=== PATIENT | male | born 1990 | race Hispanic/Latino ===

== ENCOUNTER 2018-01-01 02:46 | Emergency (ER) | payer MEDICAID ==
[2018-01-01 02:46] VITALS: BMI 22.0
[2018-01-01 03:37] VITALS: RESP 20; O2SAT 100
--- NOTE | 2018-01-01 03:53 | C.PDOC ---
History Of Present Illness 27 year old male presents to the ED for evaluation, stating he has been unable to sleep for the past month. Patient states he usually gets 2-4 hours of interrupted sleep per night. He has not followed up with his psychiatrist and stopped taking his medication, Zoloft and Xanax, because he ran out and cannot get a refill because of insurance-related issues. Patient saw an other doctor and was prescribed Atarax, from which he found no relief . Yesterday, he was prescribed Xanax, took 4 tabs of 0.5 mg each and has still been unable to find relief. Patient denies suicidal/homicidal ideation, and has no other complaints at this time. Pt has appt with psychiatrist next , 2/5 Time Seen by Provider: 01/01/18 03:17 Chief Complaint (Nursing): Psychiatric Evaluation History Per: Patient History/Exam Limitations: no limitations Onset/Duration Of Symptoms: Days Current Symptoms Are (Timing): Still Present Suicide/Self Injury Attempted (Context): None Associated Symptoms: denies: Suicidal Thoughts, Suicidal Plan Involuntary Hold By: None Recent travel outside of the [place]: No Additional History Per: Patient Past Medical History Reviewed: Historical Data, Nursing Documentation, Vital Signs Vital Signs: Last Vital Signs Temp 98.8 F 01/01/18 04:17 Pulse 110 H 01/01/18 04:17 Resp 20 01/01/18 04:17 BP 127/88 01/01/18 04:17 Pulse Ox 100 01/01/18 04:36 - Medical History PMH: Anxiety, Depression Surgical History: Tonsillectomy Family History: States: Unknown Family Hx - Social History Hx Alcohol Use: No Hx Substance Use: No Review Of Systems Psych: Positive for: Other (insomnia ). Negative for: Suicidal ideation Physical Exam - Physical Exam Appears: Non-toxic, No Acute Distress Skin: Normal Color, Warm, Dry Head: Atraumatic, Normacephalic Eye(s): bilateral: Normal Inspection Oral Mucosa: Moist Chest: Symmetrical, No Deformity, No Tenderness Cardiovascular: Rhythm Regular, No Murmur Respiratory: Normal Breath Sounds Neurological/Psych: Oriented x3, Normal Speech, Normal Cognition Gait: Steady ED Course And Treatment O2 Sat by Pulse Oximetry: 100 (on RA) Pulse Ox Interpretation: Normal Medical Decision Making Medical Decision Making: pt iwth hx aniety and depression, not on medications due to insurance reasons. here with several month hx of insomnia. pt given rx of atarax that doesn't work. on , he received xanax 0.5 mg, sts he took 4 tabs over several and still not able to sleep. wants rx for ambien. no hi, si, ah. pt has appt with his psychiatric on 01/06/18. d/c home with benadryl. pt does not need crisis evaluation at this time. Disposition Counseled Patient/Family Regarding: Diagnosis, Need For Followup, Rx Given - Disposition Disposition: HOME/ ROUTINE Disposition Time: 04:03 Condition: STABLE Additional Instructions: Please take Xanax only as prescribed for anxiety. Take benadryl ( diphenhydramine) at bedtime only to help ypu sleep. Follow up with your psychiatrist on Jan 04 as scheduled. Prescriptions: DiphenhydrAMINE [Benadryl] 50 mg PO HS #6 cap Instructions: Insomnia (ED) Forms: [facility] (Jamaican), General Discharge Instructions - Clinical Impression Clinical Impression: Insomnia - PA / CONE SEWER / Resident Statement MD/DO has reviewed & agrees with the documentation as recorded. - Scribe Statement The provider has reviewed the documentation as recorded by the Scribe (Lolis Marie) All medical record entries made by the Scribe were at my direction and personally dictated by me. I have reviewed the chart and agree that the record accurately reflects my personal performance of the history, physical exam, medical decision making, and the department course for this patient. I have also personally directed, reviewed, and agree with the discharge instructions and disposition.
[2018-01-01 04:18] VITALS: BP 127/88; PULSE 110; TEMP 98.8
== END 2018-01-01 04:18 | disposition home or self-care (01) ==
LOC: C.ER 02:46
DX: G47.00 Insomnia, unspecified (principal)

== ENCOUNTER 2018-04-22 02:51 | Emergency (ER) | payer MEDICAID ==
[2018-04-22 02:51] VITALS: BMI 22.0
[2018-04-22 03:40] LABS: BASO # 0.1 K/uL (0.0-0.2); BASO % 0.7 % (0.0-2.0); EOS # 0.2 K/uL (0.0-0.7); LYMPH # 4.2 K/uL (1.0-4.3); LYMPH % 26.5 % (20.0-40.0); MEAN CELL VOLUME 91.8 fL (80.0-94.0); MEAN CORPUSCULAR HEMOGLOBIN 32.5 pg (27.0-31.0); MEAN CORPUSCULAR HGB CONC 35.4 g/dL (33.0-37.0); MONO # 1.3 K/uL (0.0-0.8); MONO % 7.9 % (0.0-10.0); NEUT # 10.2 K/uL (1.8-7.0); NEUT % 63.9 % (50.0-75.0); RBC 4.62 Mil/uL (4.40-5.90); RED CELL DISTRIBUTION WIDTH 13.1 % (11.5-14.5)
[2018-04-22 03:43] LABS: URINE BILIRUBIN NEGATIVE (NEGATIVE); URINE CLARITY Clear (Clear); URINE COLOR Straw (YELLOW); URINE GLUCOSE (UA) NORMAL (Normal); URINE LEUKOCYTE ESTERASE NEG Leu/uL (Negative); URINE PROTEIN NEGATIVE (NEGATIVE); URINE UROBILINOGEN NORMAL mg/dL (0.2-1.0)
[2018-04-22 03:46] LABS: URINE BLOOD TRACE (NEGATIVE)
[2018-04-22 03:53] LABS: ACETAMINOPHEN < 10.0 ug/mL (10.0-30.0); SALICYLATE < 1.0 mg/dL 1
[2018-04-22 03:56] LABS: ALB/GLOB RATIO 1.3 (1.0-2.1); ALBUMIN 4.6 g/dL (3.5-5.0); ALT/SGPT 105 U/L (21-72); AST/SGOT 147 U/L (17-59); BLOOD UREA NITROGEN 11 mg/dL (9-20); CALCIUM 9.7 mg/dl (8.6-10.4); GFR AFRICAN-AMERICAN > 60; GFR NON-AFRICAN AMERICAN > 60
[2018-04-22 04:04] LABS: BARBITURATES, UR NEGATIVE (NEGATIVE); OPIATES, UR NEGATIVE (NEGATIVE); PHENCYCLIDINE, UR NEGATIVE (NEGATIVE)
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
--- NOTE | 2018-04-22 06:27 | CT ---
EXAM: CT Head Without Intravenous Contrast CLINICAL HISTORY: 27 years old, male; Pain; Headache and other: Truma; Additional info: Trauma TECHNIQUE: Axial computed tomography images of the head/brain without intravenous contrast. All CT scans at this facility use one or more dose reduction techniques, viz.: automated exposure control; ma/kV adjustment per patient size (including targeted exams where dose is matched to indication; i.e. head); or iterative reconstruction technique. COMPARISON: No relevant prior studies available. FINDINGS: Brain: No intracranial hemorrhage. No mass. No edema. Ventricles: No hydrocephalus. Bones/joints: No acute fracture. Soft tissues: Unremarkable. Sinuses: Scattered minimal to mild mucosal thickening. Mastoid air cells: No mastoid effusion. Orbits: Unremarkable as visualized. IMPRESSION: 1. No intracranial hemorrhage. 2. Incidental/non-acute findings are described above.
[2018-04-22 06:28] VITALS: O2SAT 98
[2018-04-22 06:51] LABS: BENZODIAZEPINES, UR POSITIVE (NEGATIVE)
[2018-04-22 09:35] VITALS: RESP 16
[2018-04-22 11:24] VITALS: BP 117/67; PULSE 85; TEMP 98.6
== END 2018-04-22 11:24 | disposition home or self-care (01) ==
LOC: C.ER 02:51
DX: S09.90XA Unspecified injury of head, initial encounter (principal); Y04.0XXA Assault by unarmed brawl or fight, initial encounter; Y92.89 Other specified places as the place of occurrence of the external cause; F10.10 Alcohol abuse, uncomplicated; F90.9 Attention-deficit hyperactivity disorder, unspecified type
CPT/HCPCS: 70450; 80053; 80320; 80324; 80329; 80345; 80346; 80349; 80353; 80358; 80361; 81001; 82948; 83992; 85025; 96372; 99285; J2060; J3486